=== PATIENT | female | born 2000 | race Hispanic/Latino ===

== ENCOUNTER 2024-09-07 21:16 | Emergency (ER) | payer BC ==
[~2024-09-07] VITALS: Ht 172.7 cm; Wt 103.4 kg
--- NOTE | 2024-09-07 21:21 | NUR ---
PT SIGNED IN WITH OF 04/09/1996. WHEN ASKED NAME AND PT VERIFIED . AFTER NAME ENTERED AND QUICK REG, PT APOLOGIZED STATING 1998. THAT NAME AND APPEARS IN REG LOG 05/2021 BUT WITH NO ADDRESS OR SS#. PT STATES SHE DOES NOT RECALL BEING HERE IN THE PAST. NEW ACCOUNT CREATED
--- NOTE | 2024-09-07 21:24 | NUR ---
COVID, FLU AND STREP SWABS COLLECTED AND SENT FOR FUTURE ORDERS
--- NOTE | 2024-09-07 21:26 | NUR ---
UA CUP PROVIDED
--- NOTE | 2024-09-07 21:36 | NUR ---
CALLED AND SPOKE WITH [facility]Y IN LAB, NOTIFIED OF ORDERS ENTERED FOR SWABS
[2024-09-07 21:53] LABS: RAPID GROUP A STREP negative (NEGATIVE)
[2024-09-07 22:09] LABS: INFLUENZA TYPE A Negative For Type A (NEGATIVE); INFLUENZA TYPE B Negative For Type B (NEGATIVE)
[2024-09-07 22:13] LABS: SARS-CoV-2, RNA, NAAT NEGATIVE SARS CoV-2 (NEGATIVE)
[2024-09-07] MEDS: ondanSETRON 4MG INJ IVP ONE (22:14)
[2024-09-07] MEDS: acetaMINOPHEN 500 MG TABLET PO ONE (22:15)
[2024-09-07] MEDS: 0.9%NACL 1000ML 1,000 ML IV ONE (22:15)
[2024-09-07 22:18] LABS: BASOPHILS # (AUTO) 0.04 K/uL (0.00-0.20); BASOPHILS % (AUTO) 0.3 % (0.0-5.0); EOSINOPHILS # (AUTO) 0.03 K/uL (0.00-0.70); EOSINOPHILS % (AUTO) 0.2 % (0.0-8.0); HEMATOCRIT 41.5 % (36-48); IMMATURE GRANULOCYTE ABSOLUTE 0.05 K/uL (0-1); LYMPHOCYTES # (AUTO) 1.9 K/uL (1.0-4.8); LYMPHOCYTES % (AUTO) 15.5 % (21.0-51.0); MEAN CORPUSCULAR HEMOGLOBIN 30.1 pg (27.0-33.0); MEAN CORPUSCULAR HGB CONC 33.3 g/dL (32.0-36.0); MEAN CORPUSCULAR VOLUME 90.6 fL (79-99); MONOCYTES # (AUTO) 0.6 K/uL (0.1-1.0); MONOCYTES % (AUTO) 4.8 % (3.0-13.0); NEUTROPHILS # (AUTO) 9.8 K/uL (1.8-7.7); NEUTROPHILS % (AUTO) 78.8 % (40.0-77.0); PLATELET COUNT (AUTO) 409 K/uL (130-400); RED BLOOD CELL COUNT(AUTO) 4.58 MIL/uL (4.00-5.50); RED CELL DISTRIBUTION WIDTH 12.3 % (11.0-15.5); WHITE BLOOD COUNT (AUTO) 12.4 K/uL (4.8-10.8)
[2024-09-07 22:26] LABS: CREATININE 0.6 mg/dL (0.5-1.0); POTASSIUM 3.8 mmol/L (3.5-5.1)
[2024-09-07 22:47] LABS: APPEARANCE,URINE CLEAR (CLEAR); BILIRUBIN,URINE NEGATIVE (NEGATIVE); COLOR,URINE YELLOW (YELLOW); GLUCOSE, URINE (UA) NEGATIVE (NEGATIVE); KETONES,URINE 20 mg/dL (NEGATIVE); LEUKOCYTE ESTERASE ,URINE NEGATIVE Leu/uL (NEGATIVE); NITRATE,URINE NEGATIVE (NEGATIVE); PH,URINE 6.5 (5.0-8.0); PROTEIN,URINE 10 mg/dL (NEGATIVE); UROBILINOGEN,URINE 0.2 mg/dL (0.2-1.0)
[2024-09-07 22:49] LABS: ADD UA MICROSCOPIC YES
--- NOTE | 2024-09-07 22:51 | ERN ---
ED Note History of Present Illness Stated Complaint: N/V HEADACHE Chief Complaint: Nausea,Vomiting,Diarrhea Time Seen by MD: 21:19 Time Seen by Midlevel: 21:19 Dictation: The patient is a 24-year-old female with no past medical history who presents to the emergency department with complaints of nausea, vomiting and nonbloody diarrhea, headache onset yesterday. Patient denies any abdominal pain, denies any fevers. Denies any head trauma. Patient reports she gets headaches often about 3 times a week. Reports her last menstrual period was a month and a half ago but is unsure if she is or not. Patient denies any vaginal bleeding or discharge. Allergies: Coded Allergies: No Known Allergies (Unverified Allergy, Unknown, 09/07/24) Past Medical History Past Medical History: No Pertinent History Surgical History: None RN Note Reviewed/Agreed w/PFSH: Yes Review of System Dictation Constitutional: Negative for fever,chills, and weight loss Eyes: Negative for injury, pain,redness, and discharge ENT: Negative for injury,pain or swelling Cardiovascular: Negative for chest pain, palpitations, and edema Respiratory: Negative for shortness of breath, cough, and wheezing, Abdomen/GI: Negative for abdominal pain, constipation positive for nausea v omiting and diarrhea Back: Negative for injury and pain : Negative for injury, bleeding and discharge MS/Extremity: Negative for injury and deformity Skin: Negative for rash, and discoloration Neuro: Negative for weakness, numbness, tingling, and seizure positive for headache Psych: Negative for suicide ideation, homicidal ideation, and hallucinations Initial Vital Sign VS Vital Signs Date Time Temp Pulse Resp B/P (MAP) Pulse Ox O2 Delivery O2 Flow Rate FiO2 09/07/24 21:19 98.2 75 16 141/83 99 Room Air 09/07/24 22:00 0 21 Physical Exam Dictation Vital Signs reviewed General Appearance: Alert, oriented x 3, no acute distress, well developed, nourished. Head and Face: non-traumatic. Eyes: PERRL, pink conjunctivas, eyelid no trauma, anterior chamber with arcus senilis. Ears: Pinnas intact and no signs of trauma or erythema ear canals clear and no discharge TM no erythema Nose: No discharge, no bleeding. Oropharynx: Mouth normal, tongue pink. pharynx clear,no erythema, tonsils no exudates, no abscesses noted, mucous membrane moist Neck: Supple, non-tender, no thyromegaly, no masses, no JVD, no bruits Breast:Deferred Chest:No tenderness, no crepitus, no paradoxical movement, no retractions Lungs:Clear, well-ventilated, symmetric, no rales, no wheezing, no rhonchi, no stridor, good breath sounds bilaterally Heart: Regular rate, regular rhythm, no murmur, no gallops Vascular: no peripheral edema, Abdomen: Soft, positive bowel sounds, nondistended, no guarding, nontender, no rebound, no masses no hepatomegaly, no splenomegaly, no Nieves's sign, no hernias. Rectal: Deferred Genital: Deferred Neurological: Normal speech, motor function intact, sensory function intact Musculoskeletal: Neck nontender, full range of motion, back nontender, full range of motion, Extremities: nontender, full range of motion Skin: Color pink, dry, no turgor, no rash, no lacerations, no abrasions, no contusions. Lymphatic: Deferred Results (Laboratory/Radiology) Laboratory/Radiology Laboratory Tests Test 09/07/24 21:22 09/07/24 22:12 09/07/24 22:19 Influenza Type A Antigen Negative For Type A Influenza Type B Antigen Negative For Type B SARS-CoV-2, RNA, NAAT NEGATIVE SARS CoV-2 Group A Streptococcus Rapid negative (NEGATIVE) White Blood Count 12.4 K/uL (4.8-10.8) H Red Blood Count 4.58 MIL/uL (4.00-5.50) Hemoglobin 13.8 g/dL (12.0-16.0) Hematocrit 41.5 % (36-48) Mean Corpuscular Volume 90.6 fL (79-99) Mean Corpuscular Hemoglobin 30.1 pg (27.0-33.0) Mean Corpuscular Hemoglobin Concent 33.3 g/dL (32.0-36.0) Red Cell Distribution Width 12.3 % (11.0-15.5) Platelet Count 409 K/uL (130-400) H Mean Platelet Volume 9.4 fL (7.5-10.5) Immature Granulocyte % (Auto) 0.4 % (0-1) Neutrophils (%) (Auto) 78.8 % (40.0-77.0) H Lymphocytes (%) (Auto) 15.5 % (21.0-51.0) L Monocytes (%) (Auto) 4.8 % (3.0-13.0) Eosinophils (%) (Auto) 0.2 % (0.0-8.0) Basophils (%) (Auto) 0.3 % (0.0-5.0) Neutrophils # (Auto) 9.8 K/uL (1.8-7.7) H Lymphocytes # (Auto) 1.9 K/uL (1.0-4.8) Monocytes # (Auto) 0.6 K/uL (0.1-1.0) Eosinophils # (Auto) 0.03 K/uL (0.00-0.70) Basophils # (Auto) 0.04 K/uL (0.00-0.20) Absolute Immature Granulocyte (auto 0.05 K/uL (0-1) Nucleated Red Blood Cells 0.0 % (0.0-0.19) Sodium Level 139 mmol/L (136-145) Potassium Level 3.8 mmol/L (3.5-5.1) Chloride Level 102 mmol/L (101-111) Carbon Dioxide Level 28 mmol/L (21-32) Blood Urea Nitrogen 15 mg/dL (7-18) Creatinine 0.6 mg/dL (0.5-1.0) Glomerular Filtration Rate Calc 128 mL/min (>90) Random Glucose 97 mg/dL (70-105) Total Calcium 9.6 mg/dL (8.5-10.1) Urine Color YELLOW (YELLOW) Urine Appearance CLEAR (CLEAR) Urine pH 6.5 (5.0-8.0) Urine Specific [place] 1.036 (1.001-1.031) Urine Protein 10 mg/dL (NEGATIVE) H Urine Glucose (UA) NEGATIVE mg/dL (NEGATIVE) Urine Ketones 20 mg/dL (NEGATIVE) H Urine Occult Blood +- (TRACE) (NEGATIVE) H Urine Nitrate NEGATIVE (NEGATIVE) Urine Bilirubin NEGATIVE mg/dL (NEGATIVE) Urine Urobilinogen 0.2 mg/dL (0.2-1.0) Urine Leukocyte Esterase NEGATIVE Mary Ann/uL Urine RBC 6-10 /HPF (0-1) H Urine WBC 0-1 /HPF (0-1) Urine Squamous Epithelial Cells FEW /HPF (0-2) Urine Bacteria None /HPF (None Seen) Urine HCG, Qualitative NEGATIVE (NEGATIVE) Labs Reviewed?: Yes ED Course ED Course Orders Procedure Category Date Status Time Influenza Type A & B, LAB 09/07/24 Complete Rapid 21:34 Rapid (Group A Strep) LAB 09/07/24 Complete 21:34 Covid Rna Naat LAB 09/07/24 Complete 21:34 Urinalysis Profile LAB 09/07/24 Complete 21:36 ,Urine Test LAB 09/07/24 Complete 21:36 Cbc With Differential LAB 09/07/24 Complete 21:36 Basic Metabolic Panel LAB 09/07/24 Complete 21:36 Ondansetron 4mg Inj PHA 09/07/24 Complete (Zofran 4mg Inj) 22:00 Acetaminophen 500mg PHA 09/07/24 Complete Tab (Tylenol 500mg T 22:00 0.9%Nacl 1000ml (Ns PHA 09/07/24 Complete 1000ml) 22:00 Current Medications Medications (Trade) Dose Ordered Sig/Dalia Route PRN Reason Start Time Stop Time Status Last Admin Dose Admin Acetaminophen (TYLenol 500MG TAB) 1,000 mg ONCE ONCE PO 09/07/24 22:00 09/07/24 22:01 DC 09/07/24 22:15 Ondansetron HCl (zoFRAN 4MG INJ) 4 mg ONCE ONCE IVP 09/07/24 22:00 09/07/24 22:01 DC 09/07/24 22:14 Sodium Chloride 1,000 ml @ 0 mls/hr ONCE ONCE IV 09/07/24 22:00 09/07/24 22:01 DC 09/07/24 22:15 Vital Signs Date Time Temp Pulse Resp B/P (MAP) Pulse Ox O2 Delivery O2 Flow Rate FiO2 09/07/24 22:00 98.4 69 15 131/65 98 Room Air* 0 21 09/07/24 21:19 98.2 75 16 141/83 99 Room Air Medical Decision Making MDM The patient is a 24-year-old female with no past medical history who presents to the emergency department with complaints of nausea, vomiting and nonbloody diarrhea, headache onset yesterday. Patient denies any abdominal pain, denies any fevers. Denies any head trauma. Patient reports she gets headaches often about 3 times a week. Reports her last menstrual period was a month and a half ago but is unsure if she is or not. Patient denies any vaginal bleeding or discharge. CBC showed mild leukocytosis, no anemia, chemistry showed no electrolyte imbalance, normal renal function. Urinalysis negative for leukocyte esterase, nitrites, negative . Serology negative. Patient with slightly elevated leukocytosis could be related to a stress of nausea and vomiting or dehydration. Patient with no fevers. On physical exam patient has a nontender abdomen to palpation. Patient denies any abdominal pain. Patient remains neurologically intact. There is no need for any further imaging. Patient in no acute distress. Stable vital signs we will be discharged home with diagnosis of viral gastroenteritis. Labs and imaging discussed with the patient and instructed to return if symptoms worsen. Differential diagnosis: Gastroenteritis, tension headache, electrolyte imbalance, dehydration, UTI Need for hospitalization: Patient does not meet criteria for hospitalization. There are no social concerns with this patient. DX & DISP Disposition: Discharge Departure Impression: Primary Impression: Gastroenteritis Condition: Stable Scripts Ondansetron (Ondansetron Odt) 4 Mg Tab.rapdis 4 MG PO Q6HPRN PRN for nausea, #16 TAB 0 Refills Prov: YANETH MOSELEY 09/07/24 Additional Instructions: Please continue oral hydration at home. Start with a bland diet like bananas, rice, applesauce and toast. Take medication as prescribed. If symptoms worsen please return to ER otherwise follow up with your primary doctor. FOLLOW-UP WITH PRIMARY CARE PROVIDER IN 1 TO 2 DAYS. TAKE MEDICATIONS DIRECTED HERE IN THE EMERGENCY ROOM. OKAY TO CONTINUE HOME MEDICATIONS UNLESS OTHERWISE DISCUSSED DURING YOUR VISIT IN THE EMERGENCY ROOM TODAY. RETURN TO YOUR NEAREST EMERGENCY ROOM IF SYMPTOMS WORSEN OR IF THERE IS NO IMPROVEMENT. CALL 911 IF YOU NEED IMMEDIATE ASSISTANCE. TAKE TYLENOL OR MOTRIN [id number] NEEDED AND IF NO CONTRAINDICATIONS ARE PRESENT. INCREASE ORAL HYDRATION. A WOUND CULTURE OR URINE CULTURE WAS ORDERED HERE IN THE EMERGENCY ROOM DEPARTMENT PLEASE FOLLOW-UP WITH PRIMARY CARE PROVIDER AND ADVISE THEM TO GET REPEAT PORTS FROM OUR FACILITY. IF YOU HAD ANY MELL WRAP/SPLINTS THAT WERE APPLIED HERE, PLEASE DO NOT REMOVE THEM UNTIL YOU SEE YOUR PRIMARY CARE OR SPECIALTY. Time of Disposition: 23:42 I have reviewed the case, and I agree with, Diagnosis and Plan YANETH MOSELEY September 07, 2024 22:51
[2024-09-07 22:52] LABS: HCG,QUALITATIVE URINE NEGATIVE (NEGATIVE)
[2024-09-07 22:57] LABS: MUCUS,URINE RARE LPF (None Seen); SQUAMOUS EPITHELIAL CELL,UR FEW /HPF (0-2); WBC,URINE 0-1 /HPF (0-1)
[2024-09-07] MEDS ORDERED: ONDA-243 PO (23:43)
[2024-09-07 23:46] VITALS: BP 137/69; PULSE 71; RESP 15; TEMP 98; O2SAT 98
== END 2024-09-07 23:49 | disposition home or self-care (01) ==
LOC: EDH 21:16 → EDBD 21:16 → EDH 23:49
DX: K52.9 Noninfective gastroenteritis and colitis, unspecified (principal); Z20.822 Contact with and (suspected) exposure to COVID-19
CPT/HCPCS: 99284; 96374; 87635; 96361; 80048; 85025; 87880; 87804 ×2; 81001; 81025; 36415; J7030; J2405